=== PATIENT | male | born 1995 | race Caucasian/White ===

== ENCOUNTER 2019-04-02 08:39 | Emergency (ER) | payer OTHER, SELFPAY ==
[2019-04-02 08:40] VITALS: BP 130/81; PULSE 73; RESP 18; TEMP 36.6; O2SAT 98; BMI 26.6
--- NOTE | 2019-04-02 09:34 | ED.VISSUMM ---
- ER Visit Summary Date of Service: 04/02/19 Chief Complaint: Suicidal thoughts History of Present Illness: The patient is a 23 M who was found sleeping in the parking lot of a rental car company by 's department. He informed the deputy that he was having thoughts of ending his life. 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 He is artillery. The patient states that he is legally . He has a 3-year-old child with that individual. He states that on February 22 another woman he was involved with gave . There is a paternity/custody dispute. Yesterday he was in court and was granted a paternity test. Custody would be deferred until after that test. He left the court and went and had lunch. Afterwards he states he went for badly but he will not elaborate. He states he got into a car and ran out of gas here in [place]. He denies any sniffing medical problems. Takes no medications has no allergies. He denies any drug or tobacco use. Physical Examination: Afebrile vital signs are stable Gen: Well-nourished well-developed Head: Normocephalic atraumatic Eyes: Perrl EOMI ENT: TMs clear no rhinorrhea moist mucous membranes Neck: Supple no lymphadenopathy no JVD nontender CVS: Regular rate rhythm no murmurs normal S1-S2 Respiratory: No distress clear to auscultation bilaterally chest nontender Abdomen: Soft nontender nondistended normal bowel sounds no masses Back: Nontender Extremity: Nontender no edema Skin: Normal color no rash Neuro: alert orientated ?3 CN II-XII intact normal strength sensation reflexes gait cerebellar Psych: Patient makes poor eye contact. He is very reserved. Blunted affect. He admits to wanting to end my life Emergency Department Course and Treatment: Psychiatric screening labs and toxicology results were obtained. Tox was negative. I spoke with his first sergeant who is on his way to the hospital to pick him up and take him to their facility for psychiatric admission. Until their arrival he will be under a pink slip. Impression: 1. Suicidal ideation This note was generated with [employer] dictation software. It may contain incorrect words, spelling, and punctuation that were not noted in review of the chart prior to signing ED Disposition - Plan for ED Patient: Disposition: Psychiatric Hospital or Unit Instructions: CONTRACT, No Harm, Depression Additional Instructions: Go to directly to psychiatric hospital
[2019-04-02 09:45] LABS: Absolute Lymphocyte Count 1.53 X10^3/ul (0.83-4.51); Absolute Neutrophil Count 5.7 X10^3/uL (2.0-7.7); Basophil# 0.03 X10^3/uL; Basophil% 0.4 % (0-1); Eosinophil# 0.07 X10^3/uL; Eosinophils% 0.9 % (0-5); Hematocrit 49.3 % (40-54); Hemoglobin 17.4 g/dl (13.0-16.5); Lymphocyte # 1.53 X10^3/ul (4.0); Lymphocyte % 19.1 % (19-41); Mean Corp Hgb Conc 35.3 g/gl (32-36); Mean Corpuscular Hgb 31.6 pg (27.0-32.0); Mean Corpuscular Volume 89.6 fL (80-94); Mean Platelet Vol. 10.4 fl (6.2-12.0); Monocyte# 0.64 X10^3/uL; Neutrophil # 5.72 X10^3/uL (2.7-7.7); Neutrophil % 71.4 % (47-70); Platelet Count 193 K/mm3 (150-450); RBC Distribution Width CV 12.1 % (11.6-14.6); RBC Distribution Width SD 39.3 fl (35.1-43.9)
[2019-04-02 09:46] LABS: POSITIVE COUNT NO; POSITIVE DIFFERENTIAL NO; POSITIVE MORPHOLOGY NO
[2019-04-02 10:05] LABS: Albumin, Serum 4.9 g/dL (3.2-5.0); BUN 12 mg/dL (7-18); BUN/Creat Ratio 12.1 RATIO (10-20); Creatinine, Serum 0.99 mg/dL (0.70-1.30); EST Glomerular Filtration Rate 98 mL/min (>60); Est Glom Filt Rate - Afr Amer 119 mL/min (>60); Estimated Creatinine Clearance 115.06 ml/min; Globulin 3.7 g/dL (2.2-4.2); Glucose 79 mg/dL (74-106); Protein, Total 8.6 g/dL (6.4-8.2)
[2019-04-02 10:06] LABS: ALB/GLOB Ratio 1.3 RATIO (0.9-2.4); AST(SGOT) 18 U/L (15-37); Alanine Aminotransfer ALT/SGPT 32 U/L (16-61); Alkaline Phosphatase 56 U/L (45-117); Anion Gap 7 (5-15); Calcium,Total 9.6 mg/dL (8.5-10.1); Chloride 103 mmol/L (98-107); Potassium 4.2 mmol/L (3.5-5.1); Sodium Level 142 mmol/L (136-145); Thyroid Stim Hormone (TSH) 3.88 uIU/mL (0.358-3.74)
[2019-04-02 10:17] LABS: Alcohol, Blood (Medical)-Serum < 3.0 mg/dL
--- NOTE | 2019-04-02 10:20 | CM.ED ---
SOCIAL WORK UPDATED BY THERON, PLUMBING MECHANIC. PATIENT IS AWOL FROM . OFFICERS HAVE BEEN NOTIFIED AND ARE COMING TO DIRECTOR OF SOFTWARE ENGINEERING PATIENT. NO SS NEED AT THIS TIME. ARI DE ANDA, INSPECTOR MECHANICAL, WOOD LATHER.
[2019-04-02 11:00] VITALS: RESP 18
[2019-04-02 11:13] LABS: Amphetamine Urine VISTA NEGATIVE (<1000 ng/mL); Barbiturate Urine VISTA NEGATIVE (< 200 ng/mL); Benzodiazepine Urine VISTA NEGATIVE (< 200 ng/mL); Cocaine Urine VISTA NEGATIVE (< 300 ng/mL); Ecstacy Urine VISTA NEGATIVE (< 500 ng/mL); Methadone Urine VISTA NEGATIVE (< 300 ng/mL); PCP Urine VISTA NEGATIVE (< 25 ng/mL); THC Urine VISTA NEGATIVE (< 50 ng/mL); Vista UDS pH Range 5
[2019-04-02 13:56] VITALS: BP 127/80; PULSE 70; RESP 18; O2SAT 97
[2019-04-02 15:38] VITALS: RESP 16
[2019-04-02 17:33] VITALS: BP 134/84; PULSE 56; RESP 14; O2SAT 100
[2019-04-02 18:17] VITALS: RESP 14
== END 2019-04-02 18:25 ==
PROVIDERS: Emergency Provider Emergency Medicine
DX: R45.851 Suicidal ideations (principal); F32.9 Major depressive disorder, single episode, unspecified
CPT/HCPCS: 80053; 80307; 80320; 84443; 85025; 99284; G0480